=== PATIENT | female | born 1985 | race African-American/Black ===

== ENCOUNTER 2017-07-23 03:00 | Inpatient (IN) | payer OTHER ==
[2017-07-23 03:28] VITALS: BMI 34.7
[2017-07-23 03:51] LABS: BASO % 0.5 % (0-2.0); HEMATOCRIT 37.2 % (32.4-45.2); HEMOGLOBIN 11.8 GM/dL (10.7-15.3); LYMPH % 7.2 % (8-40); MCH 24.7 pg (25.7-33.7); MCHC 31.7 g/dl (32.0-36.0); MEAN PLT VOLUME 9.4 fl (7.5-11.1); MONO % 5.8 % (3.8-10.2); NEUT % 86.5 % (42.8-82.8); PLATELET COUNT 386 K/MM3 (134-434); RBC 4.76 M/mm3 (3.60-5.2); RDW 14.8 % (11.6-15.6)
[2017-07-23] MEDS ORDERED: morphine CARPU-JECT 10 MG/1 ML DISP.SYRIN ONE ×2 (03:53→04:37)
[2017-07-23] MEDS ORDERED: ONDANSETRON 4 MG/2 ML VIAL ONE ×2 (03:55→17:40)
[2017-07-23] MEDS ORDERED: ACETAMINOPHEN 1000 MG/100 ML VIAL (NON FORMULARY) IVPB ONE (04:10)
[2017-07-23] MEDS ORDERED: ACETAMINOPHEN INJECTION 100 ML IVPB ONE (04:14)
--- NOTE | 2017-07-23 04:14 | PDOC ---
History of Present Illness - General History Source: Patient Exam Limitations: No Limitations - History of Present Illness Initial Comments: 07/23/17 04:15 The patient is a 31 year old female, with no significant past medical history, who presents to the emergency department with, right sided lower abdominal pain beginning approx. 19 hours ago. The patient reports that since waking up she has had the right sided lower abdominal pain. She reports associated nausea with 5 episodes of vomiting throughout the day described as non bloody, non bilious. The patient reports she has not eaten throughout the day secondary to the nausea. The patient reports her last bowel movement was this morning which she describes as normal. The patient denies chance of and reports her LMP was approx. 7 days ago. The patient reports taking excedrin for the pain with minimal relief. She denies recent fevers, chills, headache or dizziness. She denies recent, diarrhea or constipation. She denies recent dysuria, frequency, urgency or hematuria. She denies recent chest pain or shortness of breath. Allergies: NKA Past surgical history: None reported. <Santiago Levi - Last Filed: 07/23/17 05:28> <Julia Dodson - Last Filed: 08/01/17 15:22> - General Chief Complaint: Pain, Acute Stated Complaint: RLQ PAIN Time Seen by Provider: 07/23/17 03:18 Past History <Santiago Levi - Last Filed: 07/23/17 05:28> - Past Medical History Asthma: No Cancer: No Cardiac Disorders: No COPD: No Diabetes: No HTN: No Seizures: No Thyroid Disease: No - Reproductive History (#): 2 Para: 2 Therapeutic (s) & number: No - Suicide/Smoking/Psychosocial Hx Smoking Status: No Smoking History: Never smoked Have you smoked in the past 12 months: No Number of Cigarettes Smoked Daily: 0 Information on smoking cessation initiated: No Hx Alcohol Use: No Drug/Substance Use Hx: No Hx Substance Use Treatment: No <Julia Dodson - Last Filed: 08/01/17 15:22> - Past Medical History Allergies/Adverse Reactions: Allergies Allergy/AdvReac Type Severity Reaction Status Date / Time No Known Allergies Allergy Verified 07/23/17 03:18 Home Medications: Ambulatory Orders Acetaminophen [Tylenol .Regular Strength -] 325 mg PO Q3H PRN #2 tablet Review of Systems - Review of Systems Comments:: 07/23/17 04:15 GENERAL/CONSTITUTIONAL: No fever or chills. No weakness. HEAD, EYES, EARS, NOSE AND THROAT: No change in vision. No ear pain or discharge. No sore throat. CARDIOVASCULAR: No chest pain or shortness of breath. RESPIRATORY: No cough, wheezing, or hemoptysis. GASTROINTESTINAL: +Right lower quadrant abdominal pain. +Nausea. +Vomiting. No diarrhea or constipation. GENITOURINARY: No dysuria, frequency, or change in urination. MUSCULOSKELETAL: No joint or muscle swelling or pain. No neck or back pain. SKIN: No rash NEUROLOGIC: No headache, vertigo, loss of consciousness, or change in strength/ sensation. ENDOCRINE: No increased thirst. No abnormal weight change. HEMATOLOGIC/LYMPHATIC: No anemia, easy bleeding, or history of blood clots. ALLERGIC/IMMUNOLOGIC: No hives or skin allergy. <Santiago Levi - Last Filed: 07/23/17 05:28> *Physical Exam - Vital Signs Last Vital Signs Temp Pulse Resp BP Pulse Ox 98.1 F 112 H 20 126/84 97 07/23/17 03:18 07/23/17 03:18 07/23/17 03:18 07/23/17 03:18 07/23/17 03:18 - Physical Exam Comments: 07/23/17 04:15 GENERAL: Awake, alert, and fully oriented. HEAD: No signs of trauma EYES: PERRLA, EOMI, sclera anicteric, conjunctiva clear ENT: Auricles normal inspection, hearing grossly normal, nares patent, oropharynx clear without exudates. Moist mucosa NECK: Normal ROM, supple, no lymphadenopathy, JVD, or masses LUNGS: Breath sounds equal, clear to auscultation bilaterally. No wheezes, and no crackles HEART: Regular rate and rhythm, normal S1 and S2, no murmurs, rubs or gallops ABDOMEN: Soft, nontender, normoactive bowel sounds. No guarding, no rebound. No masses EXTREMITIES: Normal range of motion, no edema. No clubbing or cyanosis. No cords, erythema, or tenderness NEUROLOGICAL: Cranial nerves II through XII grossly intact. Normal speech, normal gait SKIN: Warm, Dry, normal turgor, no rashes or lesions noted. <Eduarda Leviian - Last Filed: 07/23/17 05:28> - Vital Signs Last Vital Signs Temp Pulse Resp BP Pulse Ox 98.1 F 112 H 20 126/84 97 07/23/17 03:18 07/23/17 03:18 07/23/17 03:18 07/23/17 03:18 07/23/17 03:18 <Julia Dodson - Last Filed: 08/01/17 15:22> ED Treatment Course - LABORATORY CBC & Chemistry Diagram: 07/23/17 03:30 07/23/17 03:30 - ADDITIONAL ORDERS Additional order review: 07/23/17 03:30 RBC 4.76 D MCV 78.0 L MCHC 31.7 L RDW 14.8 MPV 9.4 Neutrophils % 86.5 H Lymphocytes % 7.2 L D Monocytes % 5.8 Eosinophils % 0.0 D Basophils % 0.5 - RADIOLOGY Radiograph Interpretation: 07/23/17 05:21 EXAM: CT ABDOMEN AND PELVIS without contrast HISTORY: Rule out appendicitis or obstruction COMPARISON: None. FINDINGS: Lung bases are clear. The visualized cardiac chambers are normal size and configuration. There is mild/moderate right-sided hydronephrosis and perinephric inflammation secondary to a 5 mm distal UVJ stone. No additional stones identified. Normal unenhanced liver, gallbladder, pancreas, spleen, adrenal glands and left kidney. The stomach and abdominal small and large bowel are normal. There is no aortic aneurysm. There is no significant retroperitoneal lymphadenopathy. Tiny fat containing umbilical hernia is noted. The The pelvic small and large bowel are normal. The appendix is normal. The uterus and adnexal structures are normal. Urinary bladder is not inflamed. There is trace pelvic free fluid. No discrete pelvic lymphadenopathy is identified. IMPRESSION: Mild to moderate right-sided hydronephrosis and perinephric inflammation secondary to a 5 mm distal UVJ stone. Reported by Calvin Lopez MD 07/23/17 05:29 EXAM: Transabdominal pelvic ultrasound, endovaginal pelvic ultrasound and pelvic duplex HISTORY: Rule out torsion COMPARISON: None. FINDINGS: Transabdominal pelvic ultrasound:The right ovary measures 3.5centimeters in length, appears normal and demonstrates normal flow. Endovaginal pelvic ultrasound:Uterus is anteverted and measures 8.7centimeters in length. The endometrium is 7millimeters in thickness which is normal. There are no fibroids. Left ovary measures 1.4centimeters in length appears normal demonstrates normal flow. There is a small amount of free fluid. Pelvic duplex: There is normal arterial and venous flow in both ovaries. IMPRESSION: No evidence of acute pathology. Small amount of pelvic free fluid may be physiologic. Reported by Calvin Lopez MD <Santiago Levi - Last Filed: 07/23/17 05:28> - LABORATORY CBC & Chemistry Diagram: 07/24/17 07:05 07/24/17 07:05 - ADDITIONAL ORDERS Additional order review: 07/23/17 03:30 RBC 4.76 D MCV 78.0 L MCHC 31.7 L RDW 14.8 MPV 9.4 Neutrophils % 86.5 H Lymphocytes % 7.2 L D Monocytes % 5.8 Eosinophils % 0.0 D Basophils % 0.5 - RADIOLOGY Radiology Studies Ordered: Category Date Time Status ABDOMEN & PELVIS CT W/O CONTR [CT] Stat CT Scan 07/23/17 04:02 Ordered DOPPLER,ABDOM ORGAN,COMP US [US] Stat Ultrasound 07/23/17 04:03 Ordered PELVIS(OTHER) US [US] Stat Ultrasound 07/23/17 04:03 Ordered <Julia Dodson - Last Filed: 08/01/17 15:22> Medical Decision Making - Medical Decision Making 07/23/17 04:14 CT and duplex doppler of ovaries pending. RLQ pain despite morphine 2mg I will give ofirmev 07/23/17 04:50 Pt is doubled over in pain. She comes with pain that began yesterday. She was able to eat yesterday, but not able to eat all day today, as she is nauseous. She vomited today; unlikely to be food poisoning, as she ate only at [employer] and nobody else athome is ill. Pt has no fever. She has no ill contacts. She has no hx of abd surgeries in the past. She has had 3 . She has no dysuria. She is overweight. Pt doesn't smoke or drink or do drugs. Pt has no jobs-- no hx of heavy lifting or potential hernia. 07/23/17 05:22 Patient Name: BRAD SIERRA THIS IS A PRELIMINARY REPORT FROM [facility] DATE OF SERVICE: 2017-07-23 04:41:48 IMAGES: [id number] EXAM: CT ABDOMEN AND PELVIS without contrast HISTORY: Rule out appendicitis or obstruction COMPARISON: None. FINDINGS: Lung bases are clear. The visualized cardiac chambers are normal size and configuration. There is mild/moderate right-sided hydronephrosis and perinephric inflammation secondary to a 5 mm distal UVJ stone. No additional stones identified. Normal unenhanced liver, gallbladder, pancreas, spleen, adrenal glands and left kidney. The stomach and abdominal small and large bowel are normal. There is no aortic aneurysm. There is no significant retroperitoneal lymphadenopathy. Tiny fat containing umbilical hernia is noted. The The pelvic small and large bowel are normal. The appendix is normal. The uterus and adnexal structures are normal. Urinary bladder is not inflamed. There is trace pelvic free fluid. No discrete pelvic lymphadenopathy is identified. IMPRESSION: Mild to moderate right-sided hydronephrosis and perinephric inflammation secondary to a 5 mm distal UVJ stone. THIS DOCUMENT HAS BEEN ELECTRONICALLY SIGNED 07/23/17 05:24 Pt will be admitted to hospitalist. 07/23/17 05:59 Patient Name: BRAD SIERRA THIS IS A PRELIMINARY REPORT FROM [facility] DATE OF SERVICE: 2017-07-23 04:44:57 IMAGES: [id number] EXAM: Transabdominal pelvic ultrasound, endovaginal pelvic ultrasound and pelvic duplex HISTORY: Rule out torsion COMPARISON: None. FINDINGS: Transabdominal pelvic ultrasound:The right ovary measures 3.5centimeters in length, appears normal and demonstrates normal flow. Endovaginal pelvic ultrasound:Uterus is anteverted and measures 8.7centimeters in length. The endometrium is 7millimeters in thickness which is normal. There are no fibroids. Left ovary measures 1.4centimeters in length appears normal demonstrates normal flow. There is a small amount of free fluid. Pelvic duplex: There is normal arterial and venous flow in both ovaries. IMPRESSION: No evidence of acute pathology. Small amount of pelvic free fluid may be physiologic 08/01/17 15:21 Pt was admitted for obstructing stone, hydronephrosis and tachycardia with intractable pain. <Julia Dodson - Last Filed: 08/01/17 15:22> *DC/Admit/Observation/Transfer - Attestations Scribe Attestion: 07/23/17 04:16 Documentation prepared by Santiago Levi, acting as medical assisting program director for Julia Dodson MD. <Santiago Levi - Last Filed: 07/23/17 05:28> - Discharge Dispostion Admit: Yes <Julia Dodson - Last Filed: 08/01/17 15:22> Diagnosis at time of Disposition: Ureteral stone with hydronephrosis, Intractable pain - Discharge Dispostion Disposition: HOME Condition at time of disposition: Improved
[2017-07-23] MEDS ORDERED: morphine CARPU-JECT 2 MG/1 ML DISP.SYRIN IVPUSH ONE ×2 (04:36)
[2017-07-23] MEDS ORDERED: ONDANSETRON 4 MG/2 ML VIAL IVPB ONE (04:37)
[2017-07-23 04:38] LABS: ALBUMIN 3.9 g/dl (3.4-5.0); ANION GAP 6 (8-16); BILIRUBIN,TOTAL 0.3 mg/dL (0.2-1.0); BLOOD UREA NITROGEN 14 mg/dL (7-18); CALCIUM 8.7 mg/dL (8.5-10.1); CHLORIDE 105 mmol/L (98-107); CO2 26 mmol/L (21-32); CREATININE 1.5 mg/dL (0.55-1.02); GLUCOSE,RANDOM 108 mg/dL (74-106); LIPASE 181 U/L (73-393); POTASSIUM 4.1 mmol/L (3.5-5.1); SGOT/AST 19 U/L (15-37); SGPT/ALT 20 U/L (12-78); SODIUM 137 mmol/L (136-145); TOT PROT 8.8 g/dl (6.4-8.2)
[2017-07-23 04:39] LABS: ALK PHOS 89 U/L (45-117)
[2017-07-23] MEDS ORDERED: SODIUM CHLORIDE 0.9% 500 ML INFUS.BAG IV ONE (04:49)
[2017-07-23] MEDS ORDERED: KETOROLAC TROMETHAMINE 30 MG/1 ML VIAL IVPUSH ONE (04:59)
[2017-07-23] MEDS ORDERED: TAMSULOSIN HCL 0.4 MG CAP.ER.24H (FP) PO ONE (04:59)
[2017-07-23] MEDS ORDERED: TAMSULOSIN HCL 0.4 MG CAP.ER.24H (FP) ONE (05:07)
[2017-07-23] MEDS ORDERED: CEFTRIAXONE 1 GM/50 ML BAG IVPB ONE (05:28)
--- NOTE | 2017-07-23 05:34 | PN ---
Teaching Attending Note Name of Resident: Nehal Gallardo ATTENDING PHYSICIAN STATEMENT I saw and evaluated the patient. I reviewed the resident's note and discussed the case with the resident. I agree with the resident's findings and plan as documented. SUBJECTIVE: 31 F with no Pmhx who presents with right sided abdominal pain. She also has associated nausea and right sided abdominal pain. States her pain started on Sunday and spread. Denies any fevers or chills. OBJECTIVE: Physical: VS: Vital Signs Period Temp Pulse Resp BP Sys/Elmore Pulse Ox Last 24 Hr 98.1 F 112 20 126/84 97 GEN: NAD, Resting in bed, AA0X3 HEENT: NCAT, PERRL, throat without erythema or exudates CARD: RRR S1, S2 RESP: CTAB ABD: BSx4, NTD to palpation, Right Flank Pain EXT: - C/C/E CBCD WBC 15.0 K/mm3 (4.0-10.0) H 07/23/17 03:30 RBC 4.76 M/mm3 (3.60-5.2) D 07/23/17 03:30 Hgb 11.8 GM/dL (10.7-15.3) D 07/23/17 03:30 Hct 37.2 % (32.4-45.2) D 07/23/17 03:30 MCV 78.0 fl (80-96) L 07/23/17 03:30 MCHC 31.7 g/dl (32.0-36.0) L 07/23/17 03:30 RDW 14.8 % (11.6-15.6) 07/23/17 03:30 Plt Count 386 K/MM3 (134-434) D 07/23/17 03:30 MPV 9.4 fl (7.5-11.1) 07/23/17 03:30 CMP Sodium 137 mmol/L (136-145) 07/23/17 03:30 Potassium 4.1 mmol/L (3.5-5.1) 07/23/17 03:30 Chloride 105 mmol/L (98-107) 07/23/17 03:30 Carbon Dioxide 26 mmol/L (21-32) 07/23/17 03:30 Anion Gap 6 (8-16) L 07/23/17 03:30 BUN 14 mg/dL (7-18) 07/23/17 03:30 Creatinine 1.5 mg/dL (0.55-1.02) H 07/23/17 03:30 Creat Clearance w eGFR 40.77 (>60) 07/23/17 03:30 Random Glucose 108 mg/dL (74-106) H 07/23/17 03:30 Calcium 8.7 mg/dL (8.5-10.1) 07/23/17 03:30 Total Bilirubin 0.3 mg/dL (0.2-1.0) D 07/23/17 03:30 AST 19 U/L (15-37) 07/23/17 03:30 ALT 20 U/L (12-78) 07/23/17 03:30 Alkaline Phosphatase 89 U/L (45-117) 07/23/17 03:30 Total Protein 8.8 g/dl (6.4-8.2) H 07/23/17 03:30 Albumin 3.9 g/dl (3.4-5.0) 07/23/17 03:30 CXR- Pending EKG- PENDING UA- PENDING ASSESSMENT AND PLAN: 31 F with no Pmhx who presents with right sided abdominal pain, found to be septic due to pyelonephritis, with hydronephrosis and 5.5 mm R. UVJ stone 1.) Sepsis- Due to Most Pyelonephritis - IVF - [facility] Cx- STAT UA, UCX - LA STAT - CEFTRIAXONE - Urology consult 2.) DVt PPX - Low Risk - SCDS
[2017-07-23] MEDS ORDERED: CEFTRIAXONE 1 GM/50 ML BAG ONE (05:51)
[2017-07-23] MEDS ORDERED: SODIUM CHLORIDE 1,000 ML IV SCH ×2 (06:00→08:00)
--- NOTE | 2017-07-23 06:08 | HP ---
CHIEF COMPLAINT: R sided abdominal pain PCP: HISTORY OF PRESENT ILLNESS: 31 y/o F with no significant PMH who presents to the ED with R sided abdominal pain for the past two days. As per pt, the pain started Sunday and has been gradually worsening. It is in her RLQ, constant, sharp, a "20/10" and is exacerbated with deep breathing. Pt states that the pain feels similar to how she felt while in labor and is a/w nausea and emesis. Her pain was only alleviated by warm showers. Denies fever, chills, or any other physical complaints. ER course was notable for: (1) Tachycardic 112HR (2) leukocytosis 15 (3) Morphine, zofran (4) CT abdomen/pelvis: mild/moderate R sided hydronephrosis, perinephric inflammation 2/2 distal UVJ stone, trace pelvic free fluid (5) Trans abdominal pelvic u/s: no acute pathology Recent Travel: none PAST MEDICAL HISTORY: denies PAST SURGICAL HISTORY: denies Social History: Smoking: denies Alcohol: socially Drugs: denies Family History: denies Allergies No Known Allergies Allergy (Verified 07/23/17 03:18) HOME MEDICATIONS: Home Medications Medication Instructions Recorded Acetaminophen [Tylenol .Regular 325 mg PO Q3H PRN #2 tablet 03/25/15 Strength -] Ibuprofen [Motrin -] 200 mg PO Q4H PRN #2 tablet 03/25/15 REVIEW OF SYSTEMS CONSTITUTIONAL: Absent: fever, chills, diaphoresis, generalized weakness, malaise, loss of appetite, weight change HEENT: Absent: rhinorrhea, nasal congestion, throat pain, throat swelling, difficulty swallowing, mouth swelling, ear pain, eye pain, visual changes CARDIOVASCULAR: Absent: chest pain, syncope, palpitations, irregular heart rate, lightheadedness , peripheral edema RESPIRATORY: Absent: cough, shortness of breath, dyspnea with exertion, orthopnea, wheezing, stridor, hemoptysis GASTROINTESTINAL:+abdominal pain, nausea Absent: abdominal pain, abdominal distension, nausea, vomiting, diarrhea, constipation, melena, hematochezia GENITOURINARY: Absent: dysuria, frequency, urgency, hesitancy, hematuria, flank pain, genital pain MUSCULOSKELETAL: Absent: myalgia, arthralgia, joint swelling, back pain, neck pain SKIN: Absent: rash, itching, pallor HEMATOLOGIC/IMMUNOLOGIC: Absent: easy bleeding, easy bruising, lymphadenopathy, frequent infections ENDOCRINE: Absent: unexplained weight gain, unexplained weight loss, heat intolerance, cold intolerance NEUROLOGIC: Absent: headache, focal weakness or paresthesias, dizziness, unsteady gait, seizure, mental status changes, bladder or bowel incontinence PSYCHIATRIC: Absent: anxiety, depression, suicidal or homicidal ideation, hallucinations. PHYSICAL EXAMINATION Vital Signs - 24 hr 07/23/17 03:18 Temperature 98.1 F Pulse Rate 112 H Respiratory 20 Rate Blood Pressure 126/84 O2 Sat by Pulse 97 Oximetry (%) GENERAL: Lying in bed. Awake, alert, and fully oriented, in no acute distress. HEAD: Normal with no signs of trauma. EARS, NOSE, THROAT: Ears normal, nares patent, oropharynx clear without exudates. Moist mucous membranes. LUNGS: Breath sounds equal, clear to auscultation bilaterally. No wheezes, and no crackles. No accessory muscle use. HEART: Regular rate and rhythm, normal S1 and S2 without murmur, rub or gallop. ABDOMEN: Soft, obese, tender to palpation RLQ and R flank, not distended, normoactive bowel sounds, no guarding, no rebound LOWER EXTREMITIES: warm, well-perfused. No calf tenderness. No peripheral edema. NEUROLOGICAL: Cranial nerves II-XII intact. Laboratory Results - last 24 hr 07/23/17 07/23/17 07/23/17 03:30 03:30 03:30 WBC 15.0 H RBC 4.76 D Hgb 11.8 D Hct 37.2 D MCV 78.0 L MCH 24.7 L MCHC 31.7 L RDW 14.8 Plt Count 386 D MPV 9.4 Neutrophils % 86.5 H Lymphocytes % 7.2 L D Monocytes % 5.8 Eosinophils % 0.0 D Basophils % 0.5 Sodium 137 Potassium 4.1 Chloride 105 Carbon Dioxide 26 Anion Gap 6 L BUN 14 Creatinine 1.5 H Creat Clearance w eGFR 40.77 Random Glucose 108 H Calcium 8.7 Total Bilirubin 0.3 D AST 19 ALT 20 Alkaline Phosphatase 89 Total Protein 8.8 H Albumin 3.9 Lipase 181 Serum , Qual Negative Imaging CT ABDOMEN AND PELVIS without contrast IMPRESSION: Mild to moderate right-sided hydronephrosis and perinephric inflammation secondary to a 5 mm distal UVJ stone. Transabdominal pelvic ultrasound, endovaginal pelvic ultrasound and pelvic duplex IMPRESSION: No evidence of acute pathology. Small amount of pelvic free fluid may be physiologic. ASSESSMENT/PLAN: This is a 31 y/o F with no significant PMH who presents to the ED with R sided abdominal pain for the past two days. Pt admitted to med-surg due to sepsis most likely 2/2 pyelonephritis. # Sepsis most likely 2/2 pyelonephritis -tachycardic 122HR, leukocytosis 15 -F/u UA, Ucx, blood cx -F/u lactic acid -Continue Rocephin 1gm IVPB for gram negative coverage -Urology consult: Dr. Woods -Type and screen -Coags -F/u CXR #PPX -DVT: Hep 5000 U SQ BID #F/E/N IV NS 125 cc/hr Monitor electrolytes NPO #Dispo Med-surg Visit type - Emergency Visit Emergency Visit: Yes Care time: The patient presented to the Emergency Department on the above date and was hospitalized for further evaluation of their emergent condition. - New Patient This patient is new to me today: Yes Date on this admission: 07/23/17 - Critical Care Critical Care patient: No
[2017-07-23 07:31] LABS: URINE APPEARANCE CLEAR; URINE BILIRUBIN NEGATIVE (NEGATIVE); URINE BLOOD NEGATIVE (NEGATIVE); URINE COLOR LTYELLOW; URINE GLUCOSE (UA) NEGATIVE (NEGATIVE); URINE KETONE 1+ (NEGATIVE); URINE LEUK ESTERASE NEGATIVE (NEGATIVE); URINE NITRITE NEGATIVE (NEGATIVE); URINE PROTEIN NEGATIVE (NEGATIVE); URINE UROBILINOGEN NEGATIVE mg/dL (0.2-1.0)
[2017-07-23] MEDS ORDERED: KETOROLAC TROMETHAMINE 30 MG/1 ML VIAL IVPUSH PRN ×2 (07:58→18:10)
[2017-07-23] MEDS: TAMSULOSIN HCL 0.4 MG CAP.ER.24H (FP) PO SCH ×2 (08:27→10:15)
[2017-07-23] MEDS ORDERED: HEPARIN NA (PORCINE) 5,000 UNITS/ML 1ML VIAL SQ SCH (10:00)
[2017-07-23 10:05] LABS: BASO % 0.4 % (0-2.0); EOS % 0.2 % (0-4.5); HEMATOCRIT 32.9 % (32.4-45.2); HEMOGLOBIN 10.1 GM/dL (10.7-15.3); LYMPH % 15.8 % (8-40); MCH 24.6 pg (25.7-33.7); MCHC 30.8 g/dl (32.0-36.0); MEAN CELL VOLUME 79.9 fl (80-96); MEAN PLT VOLUME 9.1 fl (7.5-11.1); MONO % 9.2 % (3.8-10.2); NEUT % 74.4 % (42.8-82.8); PLATELET COUNT 333 K/MM3 (134-434); RBC 4.12 M/mm3 (3.60-5.2); RDW 14.7 % (11.6-15.6); WHITE BLOOD COUNT 12.9 K/mm3 (4.0-10.0)
[2017-07-23 10:19] LABS: INR 1.24 (0.82-1.09)
[2017-07-23 10:36] LABS: ANION GAP 5 (8-16); BLOOD UREA NITROGEN 13 mg/dL (7-18); CALCIUM 8.3 mg/dL (8.5-10.1); CHLORIDE 106 mmol/L (98-107); CO2 28 mmol/L (21-32); CREATININE 1.4 mg/dL (0.55-1.02); GLUCOSE,RANDOM 89 mg/dL (74-106); MAGNESIUM 2.1 mg/dL (1.8-2.4); PHOSPHOROUS 3.4 mg/dL (2.5-4.9); POTASSIUM 4.2 mmol/L (3.5-5.1); SODIUM 139 mmol/L (136-145)
--- NOTE | 2017-07-23 17:01 | PN ---
Addendum entered and electronically signed by Rangel Camejo, RESIDENT 07/23 17:15: Pt going for cystoscopy procedure Original Note: <Rangel Camejo - Last Filed: 07/23/17 17:11> Physical Exam: SUBJECTIVE: Patient seen and examined at bedside. She states that the pain she went through equates to a 20/10 on the pain scale. She states that he pain is currently well controlled on the morphine she received in the emergency room. She states that her pain is more like a pressure sensation. OBJECTIVE: Vital Signs Period Temp Pulse Resp BP Sys/Elmore Pulse Ox Last 24 Hr 98.1 F-98.1 F 62-112 16-20 102-126/66-84 97-100 GENERAL: The patient is awake, alert, and fully oriented, in no acute distress. HEAD: Normal with no signs of trauma. LUNGS: Breath sounds equal, clear to auscultation bilaterally, no wheezes, no crackles, no accessory muscle use. HEART: Regular rate and rhythm, S1, S2 without murmur, rub or gallop. ABDOMEN: Soft, mildly tender to palpation in the RLQ, nondistended, normoactive bowel sounds, no guarding, no rebound, no hepatosplenomegaly, no masses. NO CVA tenderness. EXTREMITIES: 2+ pulses, warm, well-perfused, no edema. NEUROLOGICAL: Cranial nerves II through XII grossly intact. Normal speech, gait not observed. PSYCH: Normal mood, normal affect. SKIN: Warm, dry, normal turgor, no rashes or lesions noted Laboratory Results - last 24 hr 07/23/17 07/23/17 07/23/17 03:30 03:30 03:30 WBC 15.0 H RBC 4.76 D Hgb 11.8 D Hct 37.2 D MCV 78.0 L MCH 24.7 L MCHC 31.7 L RDW 14.8 Plt Count 386 D MPV 9.4 Neutrophils % 86.5 H Lymphocytes % 7.2 L D Monocytes % 5.8 Eosinophils % 0.0 D Basophils % 0.5 PT with INR INR PTT (Actin FS) Sodium 137 Potassium 4.1 Chloride 105 Carbon Dioxide 26 Anion Gap 6 L BUN 14 Creatinine 1.5 H Creat Clearance w eGFR 40.77 Random Glucose 108 H Lactic Acid Calcium 8.7 Phosphorus Magnesium Total Bilirubin 0.3 D AST 19 ALT 20 Alkaline Phosphatase 89 Total Protein 8.8 H Albumin 3.9 Lipase 181 Serum , Qual Negative Urine Color Urine Appearance Urine pH Ur Specific Gurley Urine Protein Urine Glucose (UA) Urine Ketones Urine Blood Urine Nitrite Urine Bilirubin Urine Urobilinogen Ur Leukocyte Esterase Blood Type Antibody Screen 07/23/17 07/23/17 07/23/17 06:45 06:48 06:48 WBC RBC Hgb Hct MCV MCH MCHC RDW Plt Count MPV Neutrophils % Lymphocytes % Monocytes % Eosinophils % Basophils % PT with INR 14.00 H INR 1.24 H PTT (Actin FS) 29.9 Sodium Potassium Chloride Carbon Dioxide Anion Gap BUN Creatinine Creat Clearance w eGFR Random Glucose Lactic Acid Calcium Phosphorus Magnesium Total Bilirubin AST ALT Alkaline Phosphatase Total Protein Albumin Lipase Serum , Qual Urine Color Ltyellow Urine Appearance Clear Urine pH 5.0 D Ur Specific Gurley 1.036 H Urine Protein Negative Urine Glucose (UA) Negative Urine Ketones 1+ H Urine Blood Negative Urine Nitrite Negative Urine Bilirubin Negative Urine Urobilinogen Negative Ur Leukocyte Esterase Negative Blood Type Antibody Screen 07/23/17 07/23/17 07/23/17 07:10 09:55 09:55 WBC 12.9 H RBC 4.12 Hgb 10.1 L D Hct 32.9 MCV 79.9 L MCH 24.6 L MCHC 30.8 L RDW 14.7 Plt Count 333 MPV 9.1 Neutrophils % 74.4 Lymphocytes % 15.8 D Monocytes % 9.2 Eosinophils % 0.2 D Basophils % 0.4 PT with INR INR PTT (Actin FS) Sodium 139 Potassium 4.2 Chloride 106 Carbon Dioxide 28 Anion Gap 5 L BUN 13 Creatinine 1.4 H Creat Clearance w eGFR Random Glucose 89 Lactic Acid 1.0 Calcium 8.3 L Phosphorus 3.4 Magnesium 2.1 Total Bilirubin AST ALT Alkaline Phosphatase Total Protein Albumin Lipase Serum , Qual Urine Color Urine Appearance Urine pH Ur Specific Gurley Urine Protein Urine Glucose (UA) Urine Ketones Urine Blood Urine Nitrite Urine Bilirubin Urine Urobilinogen Ur Leukocyte Esterase Blood Type Antibody Screen 07/23/17 09:55 WBC RBC Hgb Hct MCV MCH MCHC RDW Plt Count MPV Neutrophils % Lymphocytes % Monocytes % Eosinophils % Basophils % PT with INR INR PTT (Actin FS) Sodium Potassium Chloride Carbon Dioxide Anion Gap BUN Creatinine Creat Clearance w eGFR Random Glucose Lactic Acid Calcium Phosphorus Magnesium Total Bilirubin AST ALT Alkaline Phosphatase Total Protein Albumin Lipase Serum , Qual Urine Color Urine Appearance Urine pH Ur Specific Gurley Urine Protein Urine Glucose (UA) Urine Ketones Urine Blood Urine Nitrite Urine Bilirubin Urine Urobilinogen Ur Leukocyte Esterase Blood Type O POSITIVE Antibody Screen Negative Active Medications Generic Name Dose Route Start Last Admin Trade Name Freq PRN Reason Stop Dose Admin Heparin Sodium (Porcine) 5,000 unit 07/23/17 10:00 07/23/17 12:39 Heparin - SQ 5,000 unit BID TIMOTHY Administration Sodium Chloride 1,000 mls @ 150 mls/hr 07/23/17 08:00 07/23/17 08:27 Normal Saline - IV 150 mls/hr ASDIR TIMOTHY Administration CEFTRIAXONE 1 G/50 ML PREMIX 50 mls @ 100 mls/hr 07/24/17 10:00 Ceftriaxone 1 Gm-D5w Bag IVPB DAILY TIMOTHY Ketorolac Tromethamine 30 mg 07/23/17 07:58 07/23/17 15:32 Toradol Injection - IVPUSH 07/28/17 07:57 30 mg Q6H PRN Administration PAIN Abd/Pelvis CT: 4.5mm stone @ R ureterovesical junction w/ mild to moderate R renal hydronephrosis ASSESSMENT/PLAN: 31 year old female with no past medical history is admitted to the hospital for an obstructive R ureteral stone and R renal hydronephrosis #Obstructive Uropathy: improving -pain significantly improved -pain controlled with toradol 40mg IV push -continue ceftriaxone 1gm IV daily due to possibly pyelo (elevated white count, tachycardia) -UA negative for UTI -continue IVF NS @ 150cc/hr -appreciate urology recommendations, Dr. Daigle #Prophylaxis: -Heparin 5000U SQ BID #FEN -NS 125cc/hr -Replete electrolytes as necessary -NPO for now #Disposition -Continue to monitor at med surg Visit type - Emergency Visit Emergency Visit: No - New Patient This patient is new to me today: No - Critical Care Critical Care patient: No <Harvey Rice - Last Filed: 07/23/17 19:40> Physical Exam: SUBJECTIVE: Patient seen and examined OBJECTIVE: Vital Signs Period Temp Pulse Resp BP Sys/Elmore Pulse Ox Last 24 Hr 98.1 F-98.1 F 62-112 16-20 102-126/66-84 97-100 GENERAL: The patient is awake, alert, and fully oriented, in no acute distress. HEAD: Normal with no signs of trauma. EYES: PERRL, extraocular movements intact, sclera anicteric, conjunctiva clear. No ptosis. ENT: Ears normal, nares patent, oropharynx clear without exudates, moist mucous membranes. NECK: Trachea midline, full range of motion, supple. LUNGS: Breath sounds equal, clear to auscultation bilaterally, no wheezes, no crackles, no accessory muscle use. HEART: Regular rate and rhythm, S1, S2 without murmur, rub or gallop. ABDOMEN: Soft, nontender, nondistended, normoactive bowel sounds, no guarding, no rebound, no hepatosplenomegaly, no masses. EXTREMITIES: 2+ pulses, warm, well-perfused, no edema. NEUROLOGICAL: Cranial nerves II through XII grossly intact. Normal speech, gait not observed. PSYCH: Normal mood, normal affect. SKIN: Warm, dry, normal turgor, no rashes or lesions noted Laboratory Results - last 24 hr 07/23/17 07/23/17 07/23/17 03:30 03:30 03:30 WBC 15.0 H RBC 4.76 D Hgb 11.8 D Hct 37.2 D MCV 78.0 L MCH 24.7 L MCHC 31.7 L RDW 14.8 Plt Count 386 D MPV 9.4 Neutrophils % 86.5 H Lymphocytes % 7.2 L D Monocytes % 5.8 Eosinophils % 0.0 D Basophils % 0.5 PT with INR INR PTT (Actin FS) Sodium 137 Potassium 4.1 Chloride 105 Carbon Dioxide 26 Anion Gap 6 L BUN 14 Creatinine 1.5 H Creat Clearance w eGFR 40.77 Random Glucose 108 H Lactic Acid Calcium 8.7 Phosphorus Magnesium Total Bilirubin 0.3 D AST 19 ALT 20 Alkaline Phosphatase 89 Total Protein 8.8 H Albumin 3.9 Lipase 181 Serum , Qual Negative Urine Color Urine Appearance Urine pH Ur Specific Gurley Urine Protein Urine Glucose (UA) Urine Ketones Urine Blood Urine Nitrite Urine Bilirubin Urine Urobilinogen Ur Leukocyte Esterase Blood Type Antibody Screen 07/23/17 07/23/17 07/23/17 06:45 06:48 06:48 WBC RBC Hgb Hct MCV MCH MCHC RDW Plt Count MPV Neutrophils % Lymphocytes % Monocytes % Eosinophils % Basophils % PT with INR 14.00 H INR 1.24 H PTT (Actin FS) 29.9 Sodium Potassium Chloride Carbon Dioxide Anion Gap BUN Creatinine Creat Clearance w eGFR Random Glucose Lactic Acid Calcium Phosphorus Magnesium Total Bilirubin AST ALT Alkaline Phosphatase Total Protein Albumin Lipase Serum , Qual Urine Color Ltyellow Urine Appearance Clear Urine pH 5.0 D Ur Specific Gurley 1.036 H Urine Protein Negative Urine Glucose (UA) Negative Urine Ketones 1+ H Urine Blood Negative Urine Nitrite Negative Urine Bilirubin Negative Urine Urobilinogen Negative Ur Leukocyte Esterase Negative Blood Type Antibody Screen 07/23/17 07/23/17 07/23/17 07:10 09:55 09:55 WBC 12.9 H RBC 4.12 Hgb 10.1 L D Hct 32.9 MCV 79.9 L MCH 24.6 L MCHC 30.8 L RDW 14.7 Plt Count 333 MPV 9.1 Neutrophils % 74.4 Lymphocytes % 15.8 D Monocytes % 9.2 Eosinophils % 0.2 D Basophils % 0.4 PT with INR INR PTT (Actin FS) Sodium 139 Potassium 4.2 Chloride 106 Carbon Dioxide 28 Anion Gap 5 L BUN 13 Creatinine 1.4 H Creat Clearance w eGFR Random Glucose 89 Lactic Acid 1.0 Calcium 8.3 L Phosphorus 3.4 Magnesium 2.1 Total Bilirubin AST ALT Alkaline Phosphatase Total Protein Albumin Lipase Serum , Qual Urine Color Urine Appearance Urine pH Ur Specific Gurley Urine Protein Urine Glucose (UA) Urine Ketones Urine Blood Urine Nitrite Urine Bilirubin Urine Urobilinogen Ur Leukocyte Esterase Blood Type Antibody Screen 07/23/17 09:55 WBC RBC Hgb Hct MCV MCH MCHC RDW Plt Count MPV Neutrophils % Lymphocytes % Monocytes % Eosinophils % Basophils % PT with INR INR PTT (Actin FS) Sodium Potassium Chloride Carbon Dioxide Anion Gap BUN Creatinine Creat Clearance w eGFR Random Glucose Lactic Acid Calcium Phosphorus Magnesium Total Bilirubin AST ALT Alkaline Phosphatase Total Protein Albumin Lipase Serum , Qual Urine Color Urine Appearance Urine pH Ur Specific Gurley Urine Protein Urine Glucose (UA) Urine Ketones Urine Blood Urine Nitrite Urine Bilirubin Urine Urobilinogen Ur Leukocyte Esterase Blood Type O POSITIVE Antibody Screen Negative Active Medications Generic Name Dose Route Start Last Admin Trade Name Freq PRN Reason Stop Dose Admin Fentanyl 50 mcg 07/23/17 18:07 Sublimaze Injection - IVPUSH [id number] PRN PAIN-PACU ORDER X 4 DOSES ONLY Heparin Sodium (Porcine) 5,000 unit 07/23/17 22:00 Heparin - SQ BID TIMOTHY Lactated Ringer's 1,000 mls @ 75 mls/hr 07/23/17 18:15 Lactated Ringers Solution IV ASDIR [facility] CEFTRIAXONE 1 G/50 ML PREMIX 50 mls @ 100 mls/hr 07/24/17 10:00 Ceftriaxone 1 Gm-D5w Bag IVPB DAILY [facility] Sodium Chloride 1,000 mls @ 150 mls/hr 07/23/17 18:10 Normal Saline - IV ASDIR [facility] Ketorolac Tromethamine 30 mg 07/23/17 18:10 Toradol Injection - IVPUSH 07/28/17 07:57 Q6H PRN PAIN Ondansetron HCl 4 mg 07/23/17 18:07 Zofran Injection IVPUSH Q6H PRN NAUSEA AND/OR VOMITING Oxycodone HCl 10 mg 07/23/17 18:07 Roxicodone - PO 07/24/17 18:06 Q4H PRN PAIN LEVEL > 4 Promethazine HCl 12.5 mg 07/23/17 18:07 Phenergan Injection - IVPB Q6H PRN NAUSEA-FOR RESCUE AFTER 15 MIN ASSESSMENT/PLAN:
[2017-07-23] MEDS ORDERED: PROPOFOL 20 ML ONE (17:16)
[2017-07-23] MEDS ORDERED: SUCCINYLCHOLINE CHLORIDE 200 MG/10 ML VIAL ONE (17:16)
[2017-07-23] MEDS ORDERED: LIDOCAINE HCL/PF 2% SDV 5ML VIAL ONE (17:16)
--- NOTE | 2017-07-23 18:05 | CON.GU ---
Consult Consult Specialty:: Referred by:: ER Reason for Consultation:: ureteral stone - History of Present Illness Chief Complaint: ureteral stone History of Present Illness: 31 year old female with 5mm R UVJ and hydro. No fever, chills or sepsis. She is unable to pass this stone. - History Source History Provided By: Patient, Medical Record Limitations to Obtaining History: No Limitations - Past Medical History Renal/: No: Renal Failure, Renal Inusuff, Renal Calculi, UTI ...LMP: 08/13/12 - Alcohol/Substance Use Hx Alcohol Use: No - Smoking History Smoking history: Never smoked Have you smoked in the past 12 months: No Aproximately how many cigarettes per day: 0 - Social History History of Recent Travel: No Home Medications - Allergies Allergies/Adverse Reactions: Allergies Allergy/AdvReac Type Severity Reaction Status Date / Time No Known Allergies Allergy Verified 07/23/17 03:18 - Home Medications Home Medications: Ambulatory Orders Acetaminophen [Tylenol .Regular Strength -] 325 mg PO Q3H PRN #2 tablet Ibuprofen [Motrin -] 200 mg PO Q4H PRN #2 tablet 03/25/15 Review of Systems - Review of Systems Constitutional: reports: Loss of Appetite. denies: Chills, Fever Gastrointestinal: reports: Nausea Genitourinary: reports: Flank Pain, Frequency. denies: Burning, Hematuria, Incontinence Physical Exam- Vital Signs: Vital Signs Temperature 98.1 F 07/23/17 14:36 Pulse Rate 68 07/23/17 14:36 Respiratory Rate 20 07/23/17 14:36 Blood Pressure 102/71 07/23/17 12:00 O2 Sat by Pulse Oximetry (%) 100 07/23/17 06:30 Constitutional: Yes: Well Nourished, No Distress, Calm Gastrointestinal: Yes: Soft Renal/: No: Bladder Distention, CVA Tenderness - Left, CVA Tenderness - Right Labs: CBC, BMP 07/23/17 09:55 07/23/17 09:55 Imaging - Results Cat Scan: Report Reviewed Problem List - Problems (1) Ureteral stone with hydronephrosis Assessment/Plan: for operative management of ureteral stone. RBA discussed Code(s): N13.2 - HYDRONEPHROSIS WITH RENAL AND URETERAL CALCULOUS OBSTRUCTION
[2017-07-23] MEDS ORDERED: oxyCODONE HCL 5 MG TABLET PO PRN (18:07)
[2017-07-23] MEDS ORDERED: PROMETHAZINE HCL 25 MG/1 ML VIAL IVPB PRN (18:07)
[2017-07-23] MEDS ORDERED: ONDANSETRON 4 MG/2 ML VIAL IVPUSH PRN (18:07)
[2017-07-23] MEDS ORDERED: LACTATED RINGERS SOLUTION 1,000 ML IV SCH (18:15)
[2017-07-23] MEDS: SODIUM CHLORIDE 1,000 ML IV SCH (19:21)
--- NOTE | 2017-07-23 20:30 | OP ---
DATE OF OPERATION: 07/23/2017 PREOPERATIVE DIAGNOSIS: Right ureteral calculus and hydronephrosis and pain. POSTOPERATIVE DIAGNOSIS: Right ureteral calculus and hydronephrosis and pain. PROCEDURE: Right ureteral salpingo lithotripsy, stone extraction with basket, and right ureteral stent placement. SURGEON: Orville Woods M.D. ANESTHESIOLOGIST: Rangel Shelby M.D. ESTIMATED BLOOD LOSS: None. FINDINGS: There was stone in the distal right ureter. DRAINS: 6 x 22 Double J ureteral stent. PREOPERATIVE INDICATION: The patient is a 31-year-old female who comes in with severe right-sided flank pain. CT reveals a 5-mm stone in the distal right ureter. No evidence of sepsis. She comes to the OR for laser lithotripsy with stone removal. OPERATION: Patient was brought to the OR, placed on the table in the supine position, given general anesthesia and placed in the modified lithotomy position. The groin was then prepped and draped sterilely. Timeout was performed. Cystoscopy was performed. The bladder was unremarkable. The right ureteral orifice was visualized. The wire was passed up into the right kidney under fluoroscopic guidance. A 10 [place] lumen catheter was used to dilate the ureteral orifice. A ureteroscope was passed into the right ureter, and a stone was seen in the distal ureter. The stone was broken up into smaller pieces with the laser. Those pieces were then pulled out using a stone basket. One fragment was sent for pathology. No other stones were seen along the course of the ureter. A 6 x 22 Double J ureteral stent was left in place. bladder, bladder was emptied. Patient was woken up. ORVILLE WOODS M.D. [id number]
--- NOTE | 2017-07-23 21:45 | EKG ---
Test Reason : Blood Pressure : / mmHG Vent. Rate : 087 BPM Atrial Rate : 087 BPM P-R Int : 158 ms QRS Dur : 070 ms QT Int : 396 ms P-R-T Axes : 046 025 023 degrees QTc Int : 476 ms NORMAL SINUS RHYTHM WITH SINUS ARRHYTHMIA NORMAL ECG NO PREVIOUS ECGS AVAILABLE Confirmed by JANNA MERINO MD ([id number]) on 07/23/2017 9:45:36 PM Referred By: Confirmed By:JANNA MERINO MD
[2017-07-23] MEDS: HEPARIN NA (PORCINE) 5,000 UNITS/ML 1ML VIAL SQ SCH (21:48)
[2017-07-24] MEDS: SODIUM CHLORIDE 1,000 ML IV SCH (02:52)
[2017-07-24 08:59] LABS: BASO % 0.2 % (0-2.0); EOS % 0.1 % (0-4.5); HEMATOCRIT 29.8 % (32.4-45.2); HEMOGLOBIN 9.3 GM/dL (10.7-15.3); LYMPH % 12.7 % (8-40); MCH 25.1 pg (25.7-33.7); MCHC 31.1 g/dl (32.0-36.0); MEAN CELL VOLUME 80.7 fl (80-96); MEAN PLT VOLUME 9.8 fl (7.5-11.1); MONO % 7.9 % (3.8-10.2); NEUT % 79.1 % (42.8-82.8); PLATELET COUNT 285 K/MM3 (134-434); RDW 14.8 % (11.6-15.6)
--- NOTE | 2017-07-24 09:02 | PN ---
Progress Note (short form) - Note Progress Note: Afebrile overnight discharge home and follow up in office on 07/17/17 for stent removal Problem List - Problems (1) Ureteral stone with hydronephrosis Code(s): N13.2 - HYDRONEPHROSIS WITH RENAL AND URETERAL CALCULOUS OBSTRUCTION
[2017-07-24 09:18] LABS: ANION GAP 9 (8-16); BLOOD UREA NITROGEN 12 mg/dL (7-18); CALCIUM 8.1 mg/dL (8.5-10.1); CHLORIDE 108 mmol/L (98-107); CO2 24 mmol/L (21-32); GLUCOSE,RANDOM 81 mg/dL (74-106); POTASSIUM 4.3 mmol/L (3.5-5.1); SODIUM 141 mmol/L (136-145)
--- NOTE | 2017-07-24 09:31 | PN ---
Progress Note (short form) - Note Progress Note: Pt doing well day#1 s/p cysto/mag lithotripsy and stent. No anesthetic issues
[2017-07-24] MEDS ORDERED: CEFTRIAXONE 1 G/50 ML PREMIX 50 ML IVPB SCH ×2 (10:00)
[2017-07-24] MEDS: HEPARIN NA (PORCINE) 5,000 UNITS/ML 1ML VIAL SQ SCH (10:11)
--- NOTE | 2017-07-24 12:42 | DS ---
Physical Exam: SUBJECTIVE: Patient seen and examined at bedside. She is s/p cystoscopy with lithotripsy and stent placement of R ureter. States that her pain has significantly improved since yesterday. States that she has some mild pain when she urinates. Denies chest pain, SOB, nausea, vomiting, overt abdominal pain. OBJECTIVE: Vital Signs Period Temp Pulse Resp BP Sys/Elmore Pulse Ox Last 24 Hr 98 F-98.4 F 61-109 16-20 114-132/63-84 96-100 PHYSICAL EXAM GENERAL: The patient is awake, alert, and fully oriented, in no acute distress. HEAD: Normal with no signs of trauma. EYES: PERRL, extraocular movements intact, sclera anicteric, conjunctiva clear. ENT: Ears normal, nares patent, oropharynx clear without exudates, moist mucous membranes. NECK: Trachea midline, full range of motion, supple. LUNGS: Breath sounds equal, clear to auscultation bilaterally, no wheezes, no crackles, no accessory muscle use. HEART: Regular rate and rhythm, S1, S2 without murmur, rub or gallop. ABDOMEN: Obese, soft, nontender, nondistended, normoactive bowel sounds, no guarding, no rebound, no hepatosplenomegaly, no masses. EXTREMITIES: 2+ pulses, warm, well-perfused, no edema. NEUROLOGICAL: Cranial nerves II through XII grossly intact. Normal speech, gait not observed. PSYCH: Normal mood, normal affect. SKIN: Warm, dry, normal turgor, no rashes or lesions noted. LABS Laboratory Results - last 24 hr 07/24/17 07/24/17 07:05 07:05 WBC 9.0 D RBC 3.70 Hgb 9.3 L Hct 29.8 L MCV 80.7 MCH 25.1 L MCHC 31.1 L RDW 14.8 Plt Count 285 MPV 9.8 Neutrophils % 79.1 Lymphocytes % 12.7 Monocytes % 7.9 Eosinophils % 0.1 Basophils % 0.2 Sodium 141 Potassium 4.3 Chloride 108 H Carbon Dioxide 24 Anion Gap 9 BUN 12 Creatinine 1.0 Random Glucose 81 Calcium 8.1 L HOSPITAL COURSE: Date of Admission:07/23/17 32 year old female with no significant past medical history presented to the hospital with acute onset RLQ abdominal pain of 2 days duration. Patient had CT scan of abdomen and pelvis which revealed a 4.5mm obstructing stone in the R ureteropelvic junction with mild-moderate right renal hydronephrosis. Patient was treated with IV hydration and morphine to control her pain. The stone did not pass spontaneously. Dr. Woods was called for a urological consult. That evening, patient underwent a R sided cystoscopy with laser lithotripsy and R ureteral stent placement. The next morning, patient had clinically improved. She was discharged home with instructions to follow with Dr. Woods in his clinic and instructed to drink plenty of water. Date of Discharge: 07/24/17 Minutes to complete discharge: 35 <Rangel Camejo - Last Filed: 07/24/17 12:36> Physical Exam: Patient seen and examined with the video production intern. Patient is comfortable, lying in bed with no acute distress. No shortness of breath. No fever or chills. Patient was suggested to have freshly squeezed lemonade everyday and was recommended to follow up with urologist in a week period. Patient is being discharged home. <Harvey Rice - Last Filed: 07/24/17 14:12> Discharge Summary Reason For Visit: HYDRONEPHROSIS W/ URINARY OBST Current Active Problems Intractable pain (Acute) Ureteral stone with hydronephrosis (Acute) - Home Medications Comprehensive Discharge Medication List: Ambulatory Orders Acetaminophen [Tylenol .Regular Strength -] 325 mg PO Q3H PRN #2 tablet <Rangel Camejo - Last Filed: 07/24/17 12:36> Current Active Problems Intractable pain (Acute) Ureteral stone with hydronephrosis (Acute) - Home Medications Comprehensive Discharge Medication List: Ambulatory Orders Acetaminophen [Tylenol .Regular Strength -] 325 mg PO Q3H PRN #2 tablet <Harvey Rice - Last Filed: 07/24/17 14:12> Condition: Improved - Instructions Diet, Activity, Other Instructions: You were treated in the hospital for Ureteral Stone. You were treated with IV fluids, pain medications, and you underwent a cystoscopy procedure with stent placement on the right side. Medical Recommendations: #Make sure to drink plenty of water at home, at least 8-10 cups of water a day to maintain adequate hydration and prevent future stones. Squeeze lemon into your water to help prevent future stone formation. #Make sure to follow with your primary care physician within 1 week of discharge. If you don't have one, please make an appointment with me in my clinic: Rangel Camejo D.O. [address] [place] [address] #Make sure to follow with Dr. Woods within 2 weeks of discharge to follow up your procedure and discuss future prevention If you experience severe pain, nausea, vomiting, diarrhea, chest pain or shortness of breath, please return to the emergency room immediately. Referrals: Orville Woods MD [Staff Physician] - Disposition: HOME This patient is new to me today: No Emergency Visit: No Critical Care patient: No - Discharge Referral Referred to [facility] Med P.C[facility] No <Rangel Camejo - Last Filed: 07/24/17 12:36>
[2017-07-24 15:04] VITALS: BP 124/80; PULSE 68; TEMP 98
[2017-07-25 08:09] LABS: SERUM IRON SATURATION 9 % (15-55); TOTAL IRON BINDING CAPACITY 246 ug/dL (250-450); UIBC 224 ug/dL (131-425)
== END 2017-07-24 15:22 | disposition home or self-care (01) | DRG 446 ==
LOC: SUATTDRO 03:00 → JER 03:00 → JERBED 07:00 → J8W 20:10
PROVIDERS: ADMIT Internal Medicine; ATTEND Internal Medicine
PROC: 0T768DZ Dilation of Right Ureter with Intraluminal Device, Via Natural or Artificial Opening Endoscopic (ICD-10-PCS; 2017-07-23)
PROC: 0TC68ZZ Extirpation of Matter from Right Ureter, Via Natural or Artificial Opening Endoscopic (ICD-10-PCS; principal; 2017-07-23 17:00)
DX: N13.2 Hydronephrosis with renal and ureteral calculous obstruction (principal); N10 Acute pyelonephritis; N13.9 Obstructive and reflux uropathy, unspecified
CPT/HCPCS: 36415; 71046-TC; 74176-TC; 76000-TC; 76775-TC; 76830-TC; 80048; 80053; 81003; 83540; 83550; 83605; 83690; 83735; 84100; 84703; 85025; 85610; 85730; 86850; 86900; 86901; 87040; 87086; 93005; 93010; 94760; 99285-25; J1644